=== PATIENT | female | born 1985 | race Caucasian/White ===

== ENCOUNTER 2022-06-24 19:29 | Emergency (ER) | payer MEDICARE, OTHER ==
[2022-06-24] MEDS: Acetaminophen 500 MG Tab PO ONE (20:12)
[2022-06-24] MEDS: Apixaban 5 MG Tab PO ONE (20:58)
== END 2022-06-24 21:10 | disposition home or self-care (01) ==
LOC: CC.ED 19:29
DX: M79.662 Pain in left lower leg (principal); R79.1 Abnormal coagulation profile; Z88.8 Allergy status to other drugs, medicaments and biological substances; Z79.899 Other long term (current) drug therapy
CPT/HCPCS: 36415; 85379; 99283; A9270-GY

== ENCOUNTER 2022-11-07 18:46 | Emergency (ER) | payer MEDICARE ==
[2022-11-07] MEDS: Take Home: Amoxicillin/Clavulanate K 875-125 MG Tab, 2 Tab Pack PO ONE (19:25)
[2022-11-07] MEDS: Diphtheria,Pertussis(Acell),Tetanus Vaccine 0.5 ML Syringe IM ONE (19:25)
== END 2022-11-07 19:32 | disposition home or self-care (01) ==
LOC: CC.ED 18:46
DX: S11.95XA Open bite of unspecified part of neck, initial encounter (principal); S00.511A Abrasion of lip, initial encounter; Z23 Encounter for immunization; Z88.8 Allergy status to other drugs, medicaments and biological substances; Z79.899 Other long term (current) drug therapy; W55.01XA Bitten by cat, initial encounter
CPT/HCPCS: 90471; 90715; 99283; 99283-25; A9270-GY

== ENCOUNTER 2023-07-30 08:53 | Emergency (ER) | payer MEDICARE ==
[2023-07-30] MEDS ORDERED: diphenhydrAMINE 50 MG/ML SDV IM ONE (08:55)
[2023-07-30] MEDS ORDERED: Haloperidol Lactate 5 MG/ML SDV IM ONE (08:55)
== END 2023-07-30 09:05 | disposition left against medical advice (07) ==
LOC: CC.ED 08:53
DX: Z88.8 Allergy status to other drugs, medicaments and biological substances
CPT/HCPCS: 99282